=== PATIENT | male | born 1980 | race Caucasian/White ===

== ENCOUNTER → 2017-02-19 | Outpatient (REF) | payer OTHER ==
[~2017-02-19] MED LIST: OMEP40CA36 PO
[2017-02-19 09:57] LABS: BASOPHILS % (AUTO) 1 % (0-2); EOSINOPHILS # (AUTO) 0.1 10^3uL; EOSINOPHILS % (AUTO) 2 % (0-4); LYMPHOCYTES # (AUTO) 1.7 X10^3; MEAN CORPUSCULAR HEMOGLOBIN 28.8 PG (26.0-34.0); MEAN CORPUSCULAR HGB CONC 35.3 g/dL (31.0-37.0); MEAN CORPUSCULAR VOLUME 82 FL (80-100); MEAN PLATELET VOLUME 11.4 FL (6.0-9.5); MONOCYTES # (AUTO) 0.5 X10^3; MONOCYTES % (AUTO) 9 % (3-11); NEUTROPHILS # (AUTO) 3.8 X10^3; NEUTROPHILS % (AUTO) 62 % (51-67); PLATELET COUNT 230 10^3uL (150-450); WHITE BLOOD COUNT 6.16 10^3uL (4.0-11.0)
[2017-02-19 10:18] LABS: ALBUMIN 4.7 g/dL (3.4-5.0); ANION GAP 18.1 MEQ/L (3-15); CALCULATED IONIZED CALCIUM 4.2 mg/dL (3.8-4.6); TOTAL PROTEIN 7.8 g/dL (6.4-8.5)
== END ==
LOC: LAB 09:02
PROVIDERS: ATTEND Nurse Practitioner Family
DX: R53.83 Other fatigue (principal); Z13.6 Encounter for screening for cardiovascular disorders
CPT/HCPCS: 80053; 80061; 82306; 82607; 84443; 85025